=== PATIENT | female | born 1970 | race Caucasian/White ===

== ENCOUNTER 2019-08-07 22:09 | Emergency (ER) | payer SELFPAY ==
[2019-08-07 22:23] VITALS: TEMP 97.6
[2019-08-07] MEDS ORDERED: TETANUS,DIPHTHERIA,PERTUSSIS 1 EA SYG IM ONE ×2 (22:29→22:30)
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
[2019-08-07] MEDS ORDERED: SILVER SULFADIAZINE 1 % 25 GM TUBE TOP ONE (22:40)
[2019-08-07 23:05] VITALS: BP 142/83; O2SAT 94
== END 2019-08-07 23:01 | disposition home or self-care (01) ==
LOC: ER 22:09
DX: T23.272A Burn of second degree of left wrist, initial encounter (principal); T31.0 Burns involving less than 10% of body surface; R01.1 Cardiac murmur, unspecified; X10.2XXA Contact with fats and cooking oils, initial encounter; Y93.G3 Activity, cooking and baking; Y92.9 Unspecified place or not applicable; Z87.891 Personal history of nicotine dependence; Z88.1 Allergy status to other antibiotic agents; Z88.2 Allergy status to sulfonamides; Z23 Encounter for immunization